=== PATIENT | female | born 1995 | race American Indian/Alaskan Native ===

== ENCOUNTER 2017-03-16 17:28 | Emergency (ER) | payer OTHER ==
[2017-03-16 17:37] VITALS: BP 106/67
--- NOTE | 2017-03-16 22:00 | Emergency Department Report ---
ED General Adult HPI - General Chief complaint: Extremity Problem,Nontraumatic Stated complaint: RIGHT LEG PAIN Time Seen by Provider: 03/16/17 21:23 Source: patient Mode of arrival: Ambulatory Limitations: No Limitations - History of Present Illness Initial comments: Shows a 21-year-old female no septal past medical history who presents with right leg swelling. She states that she was on a new control for the last 3 days and she had some right leg pain. She didincrease in swelling however she was told to come to the emergency department. Her pain as a 4 out of 10 nothing makes it better and nothing makes it worse. She says she currently isn't in any pain now and she uses estrogen control which was prescribed by her OBGYN. - Related Data Allergies Allergy/AdvReac Type Severity Reaction Status Date / Time No Known Allergies Allergy Verified 03/16/17 17:33 ED Review of Systems ROS: Stated complaint: RIGHT LEG PAIN Other details as noted in HPI ED Past Medical Hx - Past Medical History Previous Medical History?: No - Surgical History Past Surgical History?: No ED Physical Exam - General Limitations: No Limitations General appearance: alert, in no apparent distress - Head Head exam: Present: atraumatic, normocephalic - Eye Eye exam: Present: normal appearance - ENT ENT exam: Present: mucous membranes moist - Neck Neck exam: Present: normal inspection - Respiratory Respiratory exam: Present: normal lung sounds bilaterally. Absent: respiratory distress - Cardiovascular Cardiovascular Exam: Present: regular rate, normal rhythm. Absent: systolic murmur, diastolic murmur, rubs, gallop - GI/Abdominal GI/Abdominal exam: Present: soft, normal bowel sounds - Extremities Exam Extremities exam: Present: normal inspection - Back Exam Back exam: Present: normal inspection - Neurological Exam Neurological exam: Present: alert, oriented X3 - Psychiatric Psychiatric exam: Present: normal affect, normal mood - Skin Skin exam: Present: warm, dry, intact, normal color. Absent: rash ED Course Vital Signs 03/16/17 17:33 Temperature 98.5 F Pulse Rate 77 Respiratory 18 Rate Blood Pressure 106/67 O2 Sat by Pulse 99 Oximetry ED Medical Decision Making - Medical Decision Making Cdx: Myalgia ddx: DVT, SVT I will perform bedside ED ultrasound on patient. ED Ultrasound shows compressable femoral veins proximally and distally and compressible popeteal veins bilaterally. Patient has no physical swelling and most likely has myalgia. ED ultrasound shows no DVT. Patient is not tachycardic or short of breath. Discussed the patient that she can follow up with her APPOINTMENT SCHEDULER if she is having any increasing in leg pain or leg soreness to come back to emergency department. Critical care attestation.: If time is entered above; I have spent that time in minutes in the direct care of this critically ill patient, excluding procedure time. ED Disposition Clinical Impression: Right leg pain Disposition: DC-01 TO HOME OR SELFCARE Is pt being admited?: No Condition: Fair Referrals: NAIN CERDA MD [Staff Physician] - 3-5 Days
== END 2017-03-16 22:47 | disposition left against medical advice (07) ==
LOC: ED 17:28
DX: M79.604 Pain in right leg (principal); M79.89 Other specified soft tissue disorders
CPT/HCPCS: 99282